=== PATIENT | female | born 1970 | race American Indian/Alaskan Native ===

== ENCOUNTER 2017-06-19 14:04 | Outpatient (CLI) | payer OTHER ==
--- NOTE | 2017-06-23 15:57 | Vascular Lab Report ---
Left Lower Extremity Venous Duplex Study: Reason for Exam: Pain and swelling of the left lower extremity. Comments on the Right: A limited duplex study was done of the proximal veins of the right lower extremity. All veins visualized are freely compressible without evidence of internal echogenicity. Flow is spontaneous and phasic throughout. No evidence of acute or chronic thrombus is seen in any of the vessels visualized. Comments on the Left: All veins visualized are freely compressible without evidence of internal echogenicity. Flow is spontaneous and phasic throughout. No evidence of acute or chronic thrombus is seen in any of the vessels visualized. Soft tissue density is consistent with tissue edema Impression: No evidence of acute or chronic deep venous thrombosis in the left lower extremity.
== END 2017-06-19 14:05 | disposition home or self-care (01) ==
LOC: VAS 14:04
PROVIDERS: ATTEND Podiatrist Foot & Ankle Surgery
DX: M79.662 Pain in left lower leg (principal); M79.89 Other specified soft tissue disorders

== ENCOUNTER 2019-01-12 16:48 | Outpatient (CLI) | payer OTHER ==
[2019-01-12 17:21] LABS: Basophils % (Auto) 0.7 % (0.0-1.8); Eosinophils # (Auto) 0.1 K/mm3 (0.0-0.4); Eosinophils % (Auto) 1.5 % (0.0-4.3); Lymphocytes % (Auto) 35.7 % (13.4-35.0); Mean Corpuscular HGB Conc 33 % (30-34); Mean Corpuscular Volume 83 fl (79-97); Monocytes # (Auto) 0.5 K/mm3 (0.0-0.8); Monocytes % (Auto) 8.7 % (0.0-7.3); Platelet Count 242 K/mm3 (140-440); Red Blood Count 4.81 M/mm3 (3.65-5.03); Red Cell Distribution Width 13.8 % (13.2-15.2)
[2019-01-12 17:40] LABS: Alanine Aminotransferase 14 units/L (7-56); Albumin 4.2 g/dL (3.9-5); BUN/Creatinine Ratio 17; Blood Urea Nitrogen 12 mg/dL (7-17); Chol/HDL Ratio 2.79 %; HDL Cholesterol 53 mg/dL (40-59); Hemolysis Index 7; LDL Cholesterol,Direct 94 mg/dL (50-130)
--- NOTE | 2019-01-12 18:05 | XRay Report ---
PROCEDURE: XR CHEST ROUTINE 2V TECHNIQUE: PA and lateral chest radiographs were obtained. HISTORY: SLEEP APNEA, HYPERTENSION COMPARISONS: None. FINDINGS: Heart: Heart size normal.. Mediastinum/Vessels: Atherosclerotic tortuosity aorta. Trachea midline. Lungs/Pleural space: Normal. Bony thorax: No acute osseous abnormality. IMPRESSION: No active pulmonary disease.. This document is electronically signed by Andre Burrows MD., Jan 12 2019 06:03:08 PM ET
== END 2019-01-12 16:49 | disposition home or self-care (01) ==
LOC: XRAY 16:48
PROVIDERS: ATTEND Internal Medicine
DX: I70.0 Atherosclerosis of aorta (principal); I10 Essential (primary) hypertension; G47.30 Sleep apnea, unspecified
CPT/HCPCS: 36415; 71046; 80053; 80061; 84436; 84443; 85025